=== PATIENT | female | born 1955 | race Two or more races ===

== ENCOUNTER 2020-09-24 13:47 | Emergency (ER) | payer OTHER ==
[~2020-09-24] VITALS: Ht 165.1 cm; Wt 69.9 kg
[2020-09-24] MEDS ORDERED: NEURONTIN300 MG (14:09)
[2020-09-24] MEDS ORDERED: NASAL MIST126 ML (14:09)
== END 2020-09-24 18:44 | disposition home or self-care (01) ==
LOC: ER 13:47
DX: R10.32 Left lower quadrant pain (principal)